=== PATIENT | female | born 1945 | race Caucasian/White ===

== ENCOUNTER 2017-05-24 10:30 | Outpatient (CLI) | payer MEDICARE | END 2017-05-24 10:31 | disposition home or self-care (01) | LOC: BICMAMMO 10:30 | PROVIDERS: ATTEND Internal Medicine | DX: Z13.820 Encounter for screening for osteoporosis (principal); N95.9 Unspecified menopausal and perimenopausal disorder; M81.0 Age-related osteoporosis without current pathological fracture | CPT/HCPCS: 77080 ==

== ENCOUNTER 2019-01-18 19:13 | Observation (INO) | payer MEDICARE ==
[~2019-01-18 19:13] MED LIST: ISOVUE-370 76%-LOCM 1 ML ONE
--- NOTE | 2019-01-18 19:46 | RAD ---
Portable frontal chest radiograph: 01/18/2019 COMPARISON: 10/02/2016 HISTORY: Injury, trauma, pain FINDINGS: Lungs are clear. Heart and mediastinal contours appear within normal limits. The thoracic a dewayne is tortuous. There is mild atherosclerotic calcification of the aortic arch. IMPRESSION: No acute findings.
[2019-01-18 20:00] LABS: #Basophils 0.1 thou/uL (0.0-0.2); #Eosinphils 0.2 thou/uL (0.0-0.7); #Lymphocytes 1.5 thou/uL (1.20-3.40); #Monocytes 0.8 thou/uL (0.11-0.59); #Neutrophils 7.6 thou/uL (1.40-6.50); %Basophils 0.8 % (0.0-1.0); %Eosinophils 1.8 % (0.0-10.0); %Lymphocytes 14.4 % (21.0-51.0); %Monocytes 7.7 % (0.0-10.0); %Neutrophils 75.3 % (42.0-75.0); Hemoglobin 13.3 g/dL (12.0-16.0); Mean Corpuscular HGB CONC 34.4 g/dL (32.0-36.0); Mean Corpuscular Hemoglobin 34.1 pg (27.0-31.0); Mean Corpuscular Volume 99.1 fL (78.0-98.0); Mean Platelet Volume 6.6 fL (7.4-10.4); Platelet Count 449 thou/uL (130-400); RBC Distribution Width 12.7 % (11.5-14.5); Red Blood Cell (RBC) Count 3.91 mill/uL (4.20-5.40); White Blood Cell (WBC) Count 10.1 thou/uL (4.8-10.8)
[2019-01-18 20:21] LABS: ALT (SGPT) 13 U/L (8-55); AST (SGOT) 13 U/L (5-34); Albumin 4.4 g/dL (3.4-4.8); Alkaline Phosphatase 91 U/L (40-150); Anion Gap 13 mmol/L (10-20); BUN (Urea Nitrogen) 16 mg/dL (9.8-20.1); Bilirubin, Total 0.5 mg/dL (0.2-1.2); Calc. Creatinine Clearance 0 mL/min (70-130); Calcium 9.5 mg/dL (7.8-10.44); Carbon Dioxide 25 mmol/L (23-31); Chloride 104 mmol/L (98-107); Estimated GFR-MDRD 65; Globulin 2.6 g/dL (2.4-3.5); Glucose 115 mg/dL (83-110); Lipase 7 U/L (8-78); Potassium 3.4 mmol/L (3.5-5.1); Sodium 139 mmol/L (136-145)
[2019-01-18] MEDS ORDERED: Morphine 4 MG/ML VIAL ONE (20:21)
[2019-01-18] MEDS ORDERED: Acetaminophen 500 MG TAB ONE (20:21)
--- NOTE | 2019-01-18 20:57 | CT ---
Cervical spine CT without contrast: 01/18/2019 COMPARISON: None HISTORY: Trauma, pain TECHNIQUE: Axial CT imaging at 2.5 mm intervals through the cervical spine with coronal and sagittal reformatted imaging FINDINGS: The imaged lung apices are unremarkable. The C1 ring is intact. The occipital condyles, the dens, the atlantoaxial interspace, the craniocervical junction, and the c ervicothoracic junction demonstrate no acute findings. There is degenerative change at the atlantoaxial interspace and there is multilevel facet hypertrophy on the right, most prominent at C4-5. There is no significant anterolisthesis or retrolisthesis. No prevertebral soft tissue swelling. No acute fracture or evidence of dislocation. IMPRESSION: Cervical spine degenerative change. No acute osseous abnormality.
--- NOTE | 2019-01-18 21:09 | CT ---
CT of the chest, abdomen, pelvis 01/18/2019 COMPARISON: None HISTORY: Hit by a cow 4 days ago TECHNIQUE: Axial CT imaging at 5 mm intervals from the thoracic inlet through the pubic symphysis wit h IV contrast. Coronal and sagittal reformatted imaging of the chest, abdomen, pelvis, thoracic spine, and lumbar spine provided. FINDINGS: No lymphadenopathy is noted within the chest. There is a small left pleural effusion. No me diastinal, pericardial, or right-sided pleural fluid seen. There is no pneumothorax noted on either side. There is atherosclerotic calcification of the aortic arch. Coronary arterial calcifications are noted . There are subtle nondisplaced posterior left eighth and ninth rib fractures. In addition, there are subtle nondisplaced left-sided fourth, fifth, sixth, and seventh rib fractures laterally. No discrete rib fracture is appreciated on the right. No free intraperitoneal air or fluid is seen. Postoperative clips in the gallbladder fossa consistent with prior cholecystectomy. Scattered hypoden sities are noted within the liver, many of which are too small to characterize, statistically likely representing small cysts. No evidence for laceration of the liver or spleen. The pancreas, adr enal glands, and kidneys demonstrate no acute findings. Limited assessment of the bowel demonstrates no acute findings. The vascular structures of the abdomen/pelvis demonstrate scattered atherosclerotic calcification of the abdominal aorta and its branches. No lymphadenopathy is noted within the abdomen/pelvis. Osseous structures of the pelvis demonstrate no acute findings. No acute fracture or evidence of dislocation is seen involving the thoracic or lumbar spine. IMPRESSION: Multiple nondisplaced left-sided rib fractures. Small volume associated left pleural flui d.
--- NOTE | 2019-01-18 21:11 | CT ---
Head CT without contrast 01/18/2019: HISTORY: Injury, trauma, pain TECHNIQUE: Axial CT imaging at 5 mm intervals from vertex through skull base without contrast FINDINGS: Imaged paranasal sinuses and mastoid air cells are well aerated. No displaced calvarial fra cture, intracranial hemorrhage, midline shift, or mass effect. IMPRESSION: No intracranial hemorrhage or displaced calvarial fracture.
[2019-01-18] MEDS ORDERED: Morphine 2 MG/ML SYRINGE ONE (21:37)
[2019-01-18] MEDS ORDERED: Ondansetron PF 4 MG/2 ML Vial ONE (21:44)
[2019-01-18] MEDS ORDERED: Ketorolac Tromethamine 30 MG/ML VIAL ONE (22:16)
[2019-01-18] MEDS ORDERED: hydrALAZINE 20 MG/ML VIAL SLOW IVP PRN (22:59)
[2019-01-18] MEDS ORDERED: Sodium Chloride 0.9% 1,000 ML IV SCH (22:59)
[2019-01-18] MEDS ORDERED: Ondansetron ODT 4 MG TAB PO PRN (22:59)
[2019-01-18] MEDS ORDERED: Dextrose 50% Abboject 50 ML SYRINGE SLOW IVP PRN (22:59)
[2019-01-18] MEDS ORDERED: Ondansetron PF 4 MG/2 ML Vial IVP PRN (22:59)
[2019-01-18] MEDS ORDERED: traMADol HCl 50 MG TAB PO PRN ×2 (22:59)
[2019-01-18] MEDS ORDERED: Dextrose 5% in Water 1,000 ML IV PRN (22:59)
[2019-01-18] MEDS: Acetaminophen 500 MG TAB PO SCH (23:15)
[2019-01-18] MEDS: Cyclobenzaprine 10 MG TAB PO PRN (23:18)
--- NOTE | 2019-01-18 23:37 | HP ---
REQUESTING PHYSICIAN: Dr. Vu. HISTORY OF PRESENT ILLNESS: The patient is a 73-year-old woman, who was working with some cattle and one of the calves, weighing approximately 600 pounds knocked her down and brushed against her. The patient states this happened on Sunday, presented today after continuing pain. She underwent evaluation and examination, here in the emergency department, was noted to have multiple nondisplaced left-sided rib fractures at which time we were asked to evaluate the patient for admission. The patient denied any loss of consciousness, has not had any fevers, chills, night sweats and no cough. ALLERGIES: NONE. CURRENT MEDICATIONS: 1. Lexapro. 2. Propranolol. 3. Omeprazole. 4. Raloxifene. 5. Baby aspirin. PAST MEDICAL HISTORY: Mitral valve prolapse, gastroesophageal reflux, anxiety/depression. PAST SURGICAL HISTORY: Cholecystectomy, hysterectomy. SOCIAL HISTORY: The patient lives at home with family. Continues to work on the farm. She denies drug tobacco or alcohol use. PHYSICAL EXAMINATION: VITAL SIGNS: Blood pressure 177/71, heart rate 65, respirations 18, oxygen saturation 95% on room air, and temperature is 98.6. GENERAL: The patient is resting comfortably in bed she is awake, alert, and oriented x3. [place] Coma Scale is 15. HEENT: Normocephalic, atraumatic. Eyes, extraocular motion intact. PERRLA bilaterally. Ears are atraumatic without discharge. Nose is atraumatic without discharge. Oropharynx is clear. NECK: Nontender. Trachea is midline with no JVD. CHEST: Clear to auscultation with good inspiratory and expiratory effort. The patient does have pain on her left side with deep inspiration. ABDOMEN: Soft, flat and nontender with active bowel sounds. PELVIS: Stable. EXTREMITIES: Neurovascularly intact x4. BACK: Atraumatic with tenderness to palpation in left posterior rib. No tenderness to midline. LABORATORY FINDINGS: White blood cell count 10.1, hemoglobin 13.3, hematocrit 38.7, platelets 449. Sodium 139, potassium 3.4, chloride 104, CO2 of 25, BUN 16, creatinine 0.86, glucose 115. LFTs are unremarkable. Lipase 7. RADIOGRAPHIC FINDINGS: CT of the brain without contrast shows no intracranial hemorrhage or displaced calvarial fractures. CT of the C-spine without contrast shows C-spine degenerative changes. No acute osseous abnormality. CT of the chest, abdomen, and pelvis with IV contrast showed nondisplaced posterior left sided rib fractures numbers 4, 5, 6, 7, 8 and 9. There is also small volume associated left pleural fluid. The remainder of the exam is unremarkable for acute findings. ASSESSMENT/PLAN: 1. Status post ground level fall due to farm animal. 2. Left ribs 4 through 9 fractures secondary to above. 3. Acute pain secondary to above. PLAN: We will be to admit the patient to the surgical floor for observation for pain control, pulmonary toilet, gastritis, mechanical VTE prophylaxis. We will reassess the patient tomorrow and if her pain is controlled, she will likely be able to be discharged home. The evaluation, examination, laboratory, and radiographic findings will be discussed with Dr. Menezes after this dictation. Job ID: [id number]
[2019-01-18 23:40] VITALS: TEMP 97.9
[2019-01-19 00:09] VITALS: BMI 29.8
[2019-01-19 05:54] VITALS: BP 124/58
[2019-01-19] MEDS: Acetaminophen 500 MG TAB PO SCH (05:55)
[2019-01-19] MEDS ORDERED: Ibuprofen 600 MG TAB PO SCH (06:00)
[2019-01-19] MEDS ORDERED: Potassium Chloride 20 MEQ TAB PO SCH (08:00)
[2019-01-19] MEDS: Cyclobenzaprine 10 MG TAB PO PRN (08:33)
[2019-01-19] MEDS ORDERED: Escitalopram Oxalate 20 mg Tablet PO SCH (09:00)
[2019-01-19] MEDS ORDERED: Gabapentin 100 MG CAP PO SCH (09:00)
[2019-01-19] MEDS ORDERED: Propranolol 10 MG TAB PO SCH (09:00)
[2019-01-19] MEDS ORDERED: Famotidine 20 MG TAB PO SCH (09:00)
--- NOTE | 2019-01-19 09:51 | PRG ---
DATE OF SERVICE: 01/19/2019 SUBJECTIVE: Ms. Michelle feels well this morning. Her pain is pretty well controlled on the tramadol. She is ambulatory. She is using incentive spirometer. She is afebrile. OBJECTIVE: VITAL SIGNS: Stable. CHEST: She has coarse breath sounds specially on the left. HEART: Regular rate. ABDOMEN: Soft and nontender. EXTREMITIES: No deformity or ischemia to extremities. ASSESSMENT: Multiple rib fractures. PLAN: Pain control is adequate on p.o. tramadol and oral Flexeril. Plan is to discharge her home later today. Continue incentive spirometer at home and follow up in the Trauma Clinic in 2 weeks. Job ID: [id number]
--- NOTE | 2019-01-19 15:03 | DIS ---
DATE OF ADMISSION: 01/18/2019 DATE OF DISCHARGE: 01/19/2019 HISTORY: Ms. Michelle is a 73-year-old female, who came to the ER for left chest pain. Four days earlier, she was knocked down by one of her calf and the calf resisted against her. She did not seek medical help until 3 days later. Upon arrival in the ER, the patient was alert and awake. GCS 15. Complained of pain of the left side chest wall. Pain get worse with deeper inhalation or movement. Her vital signs have been stable. No other injury reported. ADMISSION DIAGNOSES: 1. Status post ground level fall due to farm animal. 2. Left rib fractures, 4 through 9. 3. Acute pain secondary to above. DISCHARGE DIAGNOSES: 1. Status post ground level fall due to farm animal. 2. Left rib fractures, 4 through 9, stable. 3. Acute pain secondary to the left rib fracture, improved. CONSULTING PHYSICIAN: None. PROCEDURE: None. HOSPITAL COURSE: The patient was admitted to surgical floor for pain control. Overnight, the patient has been doing good. Pain is well controlled. Her spirometer able to go up to 1000. She ambulated well and have personal care independently. She tolerated with her regular diet. She will be to discharge home today with pain medication p.o. DISCHARGE LOCATION: Home. DISCHARGE DISPOSITION: Home. DISCHARGE CONDITION: Satisfactory. DISCHARGE INSTRUCTIONS: The patient is to take medication as directed. The patient is to use spirometry regularly. The patient is to walk regularly at home. The patient will be seeing Trauma Team back in 10 days with chest x-ray. DISCHARGE MEDICATIONS: 1. Tramadol. 2. Flexeril. 3. Gabapentin. 4. Tylenol. 5. Ibuprofen. Job ID: [id number] [facility]
[2019-01-19] MEDS ORDERED: Hydroxyurea 500 MG CAP PO SCH (21:00)
== END 2019-01-19 11:39 | disposition home or self-care (01) ==
LOC: ERS 19:13 → SURG A 22:57
PROVIDERS: ADMIT Surgery; ATTEND Surgery
DX: S22.42XA Multiple fractures of ribs, left side, initial encounter for closed fracture (principal); G89.11 Acute pain due to trauma; K21.9 Gastro-esophageal reflux disease without esophagitis; F41.9 Anxiety disorder, unspecified; F32.9 Major depressive disorder, single episode, unspecified; Z79.82 Long term (current) use of aspirin; Z79.899 Other long term (current) drug therapy; W55.29XA Other contact with cow, initial encounter; W18.39XA Other fall on same level, initial encounter
CPT/HCPCS: 70450; 71045; 71260; 72125; 74177; 80053; 83690; 85025; 86850; 86900; 86901; 93005; 96361 ×2; 96374; 96375; 96376; 97139; 99285; G0378 ×2; 36415; J1885; J2270; J2405; Q9966

== ENCOUNTER 2019-01-30 09:19 | Outpatient (CLI) | payer MEDICARE ==
--- NOTE | 2019-01-30 10:42 | RAD ---
TWO VIEW CHEST: HISTORY: Left rib fractures. COMPARISON: Correlation is made to CT chest 01/18/2019 which described multiple left rib fractures. FINDINGS: The lungs are well aerated and appear clear. No infiltrate, effusion, or pneumothorax apparent. The previously described left rib fractures are not well delineated on this PA chest. Osseous structure s appear unremarkable. Heart and mediastinum unremarkable. IMPRESSION: No acute abnormality. POS: [facility]
== END 2019-01-30 09:20 | disposition home or self-care (01) ==
LOC: BICRAD 09:19
PROVIDERS: ATTEND Physician Assistant
DX: S22.32XA Fracture of one rib, left side, initial encounter for closed fracture (principal)
CPT/HCPCS: 71046

== ENCOUNTER 2019-12-01 13:08 | Outpatient (CLI) | payer MEDICARE ==
--- NOTE | 2019-12-01 13:59 | BD ---
EXAM: DEXA bone density examination HISTORY: 74-year-old postmenopausal female for screening COMPARISON: None FINDINGS: L1--bone mineral density 0.869 g/sq cm; T score -1.1 L2--bone mineral density 0.977 g/sq cm; T score -0.5 L3--bone mineral density 0.911 g/sq cm; T score -1.6 L4--bone mineral density 0.860 g/sq cm; T score -1.8 Total L1-L4--bone mineral density 0.903 g/sq cm; T score -1.3 Left femoral neck--bone mineral density0.630; T score -2.0 Total proximal left femur--bone mineral density 0.861; T score -0.7 IMPRESSION: Osteopenia. This patient has a 10 year WHO fracture risk of a major osteoporotic fracture of 28% and of a hip fracture of 17%.
== END 2019-12-01 13:09 | disposition home or self-care (01) ==
LOC: BICMAMMO 13:08
PROVIDERS: ATTEND Internal Medicine
DX: Z13.820 Encounter for screening for osteoporosis (principal); N95.9 Unspecified menopausal and perimenopausal disorder; M85.89 Other specified disorders of bone density and structure, multiple sites
CPT/HCPCS: 77063; 77067; 77080

== ENCOUNTER 2021-03-31 08:51 | Outpatient (CLI) | payer MEDICARE | END 2021-03-31 08:52 | disposition home or self-care (01) | LOC: BICMAMMO 08:51 | PROVIDERS: ATTEND Internal Medicine | DX: Z12.31 Encounter for screening mammogram for malignant neoplasm of breast (principal) | CPT/HCPCS: 77063; 77067 ==